=== PATIENT | female | born 2000 | race Caucasian/White ===

== ENCOUNTER 2025-04-27 21:46 | Emergency (ER) | payer OTHER, SELFPAY ==
[2025-04-27 21:53] VITALS: PULSE 112; RESP 18; TEMP 36.7; O2SAT 99; BMI 24.8
[2025-04-27 22:22] LABS: Hematocrit 47.8 % (37.0-47.0); Hemoglobin 16.8 g/dl (12.0-16.0); Imm Gran Abs Auto 0.05 X10*3/uL (0.00-0.03); Imm Gran Pct Auto 0.4 % (0.0-0.4); Lymphocytes Absolute Auto 0.6 X10*3/uL (1.2-4.9); MANUAL DIFF FLAG NO; Mean Corpuscular HGB Conc 35.1 g/dl (31.0-35.0); Mean Corpuscular Hemoglobin 29.0 pg (27.0-33.0); Mean Corpuscular Volume 82.6 fL (80.0-98.0); NRBC Abs Auto 0.000 X10*3/uL (0.0-0.012); NRBC Pct Auto 0.0 /100WBC (0.0-0.2); Platelet Count 317 X10*3/uL (160-400); Red Blood Count 5.79 X10*6/uL (4.20-5.50); White Blood Count 11.9 X10*3/uL (4.8-10.8)
[2025-04-27 22:37] LABS: Alanine Aminotransferase 22 U/L (0-31); Albumin Level 5.4 g/dL (3.5-5.0); Alkaline Phosphatase 65 U/L (39-117); Anion Gap 19 (12-20); Aspartate Amino Transferase 27 U/L (5-31); Blood Urea Nitrogen 14 mg/dL (9-16); Calcium 10.9 mg/dL (8.4-10.2); Carbon Dioxide 20 mmol/L (22-29); Chloride 105 mmol/L (96-108); Creatinine Clr Calc Pharmacy 66.8; Estimated Glomerular Filt Rate 60; Lipase 16 U/L (8-78); Potassium 3.7 mmol/L (3.3-5.1); Sodium 140 mmol/L (135-145); Total Protein 8.3 g/dL (6.5-8.0)
[2025-04-27 22:43] LABS: Magnesium 1.8 mg/dL (1.6-2.6)
[2025-04-28 00:04] VITALS: BP 103/61; PULSE 94; RESP 15; TEMP 36.4; O2SAT 100
--- NOTE | 2025-04-28 00:14 | PC.NURSE ---
pt a&ox4, respirations even and unlabored. pt reports sudden onset of n/v/d and bilateral leg cramping and numbness. pt denies any sick contacts. pt reports she has had poor po intake and is throwing up bile. pt mother reports pt is vit b12 deficit and believes this might be causing the sx. pt reports sx started after majijuana use. vss.
[2025-04-28 00:45] LABS: Resp Syncy Virus RNA Qual PCR NEGATIVE (Negative); SARS COV2 PCR INHOUSE NEGATIVE (Negative)
[2025-04-28 00:55] LABS: Appearance Urine Cloudy; Glucose Urine UA Negative (Negative); PH 5.0 (5.0-9.0); Specific Gravity - Urine >= 1.030 (1.005-1.025); UMIC TRIGGER UACC YES
--- OUTSIDE RECORDS SUMMARY | 2025-04-28 01:00 | XMS_ITS | Clinical Summary ---
Author Organization [facility] [address] [place] [address] [place] [phone] Phone Care Team Providers Care Automotive Project Engineer Name Role Phone William Zuñiga MD Primary Care Provider [phone] Allergies No known active allergies Medications albuterol 2.5 mg /3 mL (0.083 %) nebulizer solution Take 1 Vial by nebulization 3 times daily as needed. Active albuterol HFA (PROAIR HFA ; PROVENTIL HFA ; VENTOLIN HFA) 90 mcg/actuation inhaler Inhale 2 Puffs into the lungs every 4 hours as needed for Cough or Wheezing. 6 Active albuterol HFA (PROAIR HFA ; PROVENTIL HFA ; VENTOLIN HFA) 90 mcg/actuation inhaler Inhale 2 Puffs into the lungs every 4 hours as needed for Cough or Wheezing. One for home, one for school 6 Active diphenhydrAMINE (BENADRYL) 25 mg tablet Take 1 Tab by mouth every 8 hours as needed for Itching or Allergies. 6 Active cyanocobalamin (VITAMIN B-12) 1,000 mcg tablet Take 1 tablet (1,000 mcg total) by mouth 1 (one) time each day. 30 each 5 10/21/19 26 Active cholecalciferol (VITAMIN D-3) 50 mcg (2,000 unit) tablet Take 1 tablet (2,000 Units total) by mouth 1 (one) time each day. 30 tablet 11 5 10/21/19 26 Active fluticasone propionate (FLONASE) 50 mcg/actuation nasal spray Administer 2 sprays into each nostril 1 (one) time each day. Shake gently. Before first use, prime pump. After use, clean tip and replace cap. 16 g 5 5 10/21/19 26 Active Hospital, Clinic, or Other Facility Administered Medication Ordered Dose Route Frequency Start Date End Date Status cyanocobalamin (VITAMIN B-12) injection 1,000 mcgIndications:B12 deficiency 1000 mcg IM Every 30 days 09/22/2024 Active Active Problems Problem Noted Date Diagnosed Date B12 deficiency 07/24/2024 Trichomonas infection 08/19/2023 Overview (02/14/2024): 08/2023- treated 11/23- retesting- positive, treated Vitamin D deficiency 06/14/2020 Overview (02/14/2024): 06/21 level 20 stated on Vitamin D IVON (acute kidney injury) 06/02/2018 Mood changes 01/27/2017 PTSD (post-traumatic stress disorder) 01/27/2016 Dysmenorrhea 01/25/2015 Allergic rhinitis 01/04/2015 Overview (02/14/2024): 01/25/15 denies problem at this time Asthma 07/08/2011 Overview (02/14/2024): Mild obstructive airway disease per PFT on 07/14/11 [facility] 01/25/15 Doing well. Not using inhaler with sports Immunizations Immunization Administration Dates Next Due DTaP (Infanrix) 6wks to less than 7yo ,11/13/2000,04/14/2000,02/12,1999 [id number]-QWK-IYR (Pentacel) 2mo to less than 5yo 01/12/2001,04/14/2000,02/13/2000,12/09 HPV 9-valent (Gardisil) 9yo to less than 46yo 01/25/2015 HPV, Quadrivalent 12/16/2012,04/15/2012 Hepatitis A Pediatric (Havri x; Vaqta) 12mo to less than 19yo 07/08/2011,12/04/2010 Hepatitis B Pediatric (Enger ix B; Recombivax HB) to less than 20 yo 07/28/2000,1999,1999 IPV Inactivated polio (Ipol) 6wks and older 10/24/2003,07/28/2000,02/13/2000,12/09 MMR, measles mumps and rubel la Live (Priorix; M-M-R II) 12mo and older 10/24/2003,11/13/2000 Meningococcal MCV4P 01/27/2016,11/17/2010 Pneumococcal Conjugate Vacci ne, 7 Valent 04/15/2001,11/13/2000 Pneumococcal polysaccharide 23 valent (Pneumovax 23) 2yo and older 04/03/2020 Tdap Tetanus diptheria acell ular pertussis (Boostrix; Adacel) 7yo and older 04/15/2023,11/17/2010 Varicella live (Varivax) 12m o and older 07/08/2011,11/13/2000 Surgical History Surgery Date Site/Laterality Comments HERNIA REPAIR age 2 PROCEDURE: HISTORICAL HERNIA REPAIR/UMB SHOULDER SURGERY 07/16/2022 Left PROCEDURE: HISTORICAL SHOULDER SURGERY Medical History Medical History Date Comments Asthma 2003 DX:Asthma; COMME NT: PFT on 07/14/[address] [facility] Contact dermatitis and other eczema, due to unspecified cause 06/30/12 DX:Contact dermatitis and ot her eczema, due to unspecified cause Allergic rhinitis 01/04/2015 DX:Allergic rh initis Family History Medical History Relation Name Comments Asthma Father Diabetes Father Other: TB Father took INH in pas t Other: hyperlipidemia Father Hyperlipidemia Maternal Grandfather Other: epilepsy Maternal Grandfather Thyroid disease Maternal Grandfather Depression Maternal Grandmother Glaucoma Maternal Grandmother Hyperlipidemia Maternal Grandmother Thyroid disease Maternal Grandmother Diabetes Paternal Grandmother Glaucoma Paternal Grandmother Asthma Sister 1 Blindness Neg Hx Breast cancer Neg Hx Cataracts Neg Hx Colon cancer Neg Hx Macular degeneration Neg Hx Ovarian cancer Neg Hx Pancreatic cancer Neg Hx Strabismus Neg Hx Uterine cancer Neg Hx Relation Name Status Comments Father Alive Maternal Grandfather Alive Maternal Grandmother Alive Mother Alive Paternal Grandfather Alive Paternal Grandmother Alive Sister 1 Sister 2 Alive older, name, ag e unknown at this time Social History Tobacco Use Types Packs/Day Years Used Date Smoking Tobacco: Never Smokeless Tobacco: Never Tobacco Cessation:Counseling Given: No Alcohol Use Standard Drinks/Week Comments Yes 0 (1 standard drink = 0.6 oz pur e alcohol) Housing Instability Answer Date Recorde d Are you worried that in the next 2 months you may not have stable housing? No 07/19/2024 Food Access & Nutrition Answer Date Rec orded Do you have access to a vari ety of food including fruits and vegetables? Yes 07/19/2024 Access to Healthcare Answer Date Record ed Within the last 3 months, ho w many times did you visit the emergency department for your medical care? 1 07/19/2024 Health Literacy Answer Date Recorded How often do you need to hav e someone help you when you read instructions, pamphlets, or other written material from your doctor or pharmacy? Never 07/19/2024 Caregiver: How often do you need to have someone help you when you read instructions, pamphlets, or other written material from your doctor or pharmacy? Not on file 07/19/2024 Financial Risk Answer Date Recorded How hard is it for you to pa y for the very basics like food, housing, medical care, and air conditioning / heating? Not very hard 07/19/2024 Transportation Answer Date Recorded Has the lack of transportati on kept you from meetings, work, or from getting things needed for daily living? No Has the lack of transportati on kept you from medical appointments or from getting medications? No 07/19/2024 Social Isolation Answer Date Recorded How often do you feel lonely or isolated from th ose around you? Never 07/19/2024 Food Risk Answer Date Recorded Within the past 12 months we worried whether our food would run out before we got money to buy more. Never true 07/19/2024 Within the past 12 months th e food we bought just didn't last and we didn't have money to get more. Never true 07/19/2024 Dependent Care Answer Date Recorded Do you need help finding or paying for care for your loved ones. For example, child care cook or elderly care for an older adult? No 07/19/2024 Education Answer Date Recorded Do you think completing more education or training, like finishing a GED, going to college, or learning a trade, would be helpful for you? No 07/19/2024 Employment and Income Answer Date Recor ded During the last four weeks, have you been actively looking for work? No 07/19/2024 Living Situation Answer Date Recorded What is your living situation? Unrecognized valu e 07/19/2024 Comments No Sex and Gender Information Value Date Recorded Sex Assigned at Not on file Legal Sex Female 2:22 PM EST Gender Identity Not on file Sexual Orientation Not on file Obstetrics History Para Term AB IAB SAB Ectopic Multiple Livin g Live Births 0 0 0 0 0 0 0 0 Last Filed Vital Signs Vital Sign Reading Time Taken Comments Blood Pressure 100/60 10/20/2024 8:19 AM EDT Pulse 56 10/20/2024 8:19 AM EDT Temperature 36.6 C (97.8 F) 10/20/2024 8:19 AM EDT Respiratory Rate 16 04/18/2024 1:53 PM EST Oxygen Saturation 96% 10/20/2024 8:19 AM EDT Inhaled Oxygen Concentration - - Weight 59.1 kg (130 lb 3.2 oz) 10/20/2024 8:19 A M EDT Height 157.5 cm (5' 2 ) 10/20/2024 8:19 AM EDT Body Mass Index 23.81 10/20/2024 8:19 AM EDT Plan of Treatment Health Maintenance Due Date Last Done Comments Depression Screening 05/10/2024 04/15/2023 COVID-19 Vaccine ( season) 2025 Influenza Vaccine (#1) 2025 Social Influencers of Health Screening 07/19/2025 07/19/2024 Cervical Cancer Screening: Pap Smear 03/24/2027 03/24/2024 Cholesterol Screening (Lipid Panel) 07/20/2029 07/20/2024, 04/15/2023 DTaP,Tdap,and Td Vaccines (8 - Td or Tdap) 04/15/2033 04/15/2023, 11/17/2010, 10/24/2003, Additional history exists Pneumococcal Vaccine: Pediatrics (0 to 5 Years) and At-Risk Patients (6 to 49 Years) (2 of 2 - PCV20 or PCV21) 10/08/2049 04/03/2020, 04/15/2001, 11/13/2000 RSV Immunization Adult Patients (1 - 1-dose 75+ series) 10/08/2074 Hepatitis B Vaccines Completed 07/28/2000, 1999, 1999 HIB Vaccines Completed 01/12/2001, 10/1999, 02/13/2000, Additional history exists IPV Vaccines Completed 10/24/2003, 09/2000, 07/28/2000, Additional history exists MMR Vaccines Completed 10/24/2003, 11/13/2000 Hepatitis A Vaccines Completed 07/08/2011, 12/05/19 11 Varicella Vaccines Completed 07/08/2011, 11/13/2000 HPV Vaccines Completed 01/25/2015, 01/2013, 04/15/2012 Meningococcal ACWY Vaccine Completed 01/27/2016, HIV Screening Completed 05/23/2020 Hepatitis C Screening Completed 05/23/2020 Gonorrhea/Chlamydia Screening Discontinued 03/24/2024, 08/18/2023 Meningococcal B Vaccine Aged Out No l onger eligible based on patient's age to complete this topic RSV Immunization Patients Under 20 months Aged Out No longer eligible based on patient's age to complete this topic Procedures Procedure Name Priority Date/Time Associated Diagnosis Comments LIPID PANEL WITH REFLEX TO DIRECT LDL Routine 07/20/2024 1:52 PM EDT Routine general medical examination at a health care facility CHLAMYDIA TRACHOMATIS AND NEISSERIA GONORRHOEAE PCR Routine 03/24/2024 12:48 PM EST Screen for STD (sexually transmitted disease) PAP SMEAR Routine 03/24/2024 12:44 PM EST Screening for cervical cancer DEPRESSION SCREENING Routine 04/15/2023 HEPATITIS C SCREENING Routine 05/23/2020 HIV SCREENING Routine 05/23/2020 from Last 3 Months or Most Recently Relevant to Health Maintenance Results * Lipid panel with reflex to direct LDL (07/20/2024 1:52 PM EDT) Cholesterol 129 0 - 200 mg/dL LAB CHEMISTRY METHOD 07/20/2024 6:34 PM EDT [facility] Triglycerides 56 0 - 150 mg/dL LAB CHEMISTRY METHOD 07/20/2024 6:34 PM EDT [facility] HDL 54 >=40 mg/dL LAB CHEMISTRY METHOD 07/20/2024 6:34 PM EDT [facility] LDL Calculated 64 0 - 100 mg/dL LAB CHEMISTRY METHOD 07/20/2024 6:34 PM EDT [facility] VLDL Cholesterol Jair 11.2 mg/dL LAB CHEMISTRY METHOD 07/20/2024 6:34 PM EDT [facility] Non HDL Chol. (LDL+VLDL) 75 <145 mg/dL LAB CHEMISTRY METHOD 07/20/2024 6:34 PM EDT [facility] Chol/HDL Ratio 2.4 0.0 - 4.4 LAB CHEMISTRY METHOD 07/20/2024 6:34 PM EDT [facility] Blood Venous blood specimen / Unknown Venipuncture / Unknown 07/20/2024 1:52 PM EDT 07/20/2024 1:52 PM EDT us Galilea BROUSSARD LAB BLOOD ORDERABLES Final Result [facility] [address] [place] [address], * Chlamydia trachomatis and Neisseria gonorrhoeae molecular study (03/24/2024 12:48 PM EST) Neisseria gonorrhoeae PCR Negative Negative LAB MOLECULAR DIAGNOSTICS METHOD 03/25/2024 1:51 PM EST [facility] Chlamydia trachomatis PCR Negative Negative LAB MOLECULAR DIAGNOSTICS METHOD 03/25/2024 1:51 PM EST [facility] Swab Cervix uteri structure / Unknown Non-blood Collection / Unknown 03/24/2024 12:48 PM EST 03/24/2024 12:48 PM EST Sagrario Wei MD LAB MICROBIOLOGY - GENERAL ORDERABLES Final Result [facility] [address] [place] [address], * Pap Smear (03/24/2024 12:44 PM EST) Interpretation Negative for intraepithelial lesion or malignancy 03/29/2024 9:26 AM [facility] at 0926 EST General Categorization Negative 03/29/2024 9:26 AM [facility] Other Findings Shift in gustavo suggestive of bacterial vaginosis 03/29/2024 9:26 AM [facility] LMP 02/21/2024 03/29/2024 9:26 AM [facility] Specimen Adequacy Satisfactory for evaluation, endocervical/patton sformation zone component present 03/29/2024 9:26 AM [facility] Pap Methodology Liquid Based Pap Test 03/29/2024 9:26 AM [facility] Disclaimer The Pap test is a screening test which carries an inherent false negative rate. These test results should be correlated with the patient's clinical findings and history. This Pap test was processed using an automated screening system. Technical cytopathology services provided by [facility], at [address] [place] [id number] (CLIA # [id number]/Ruby Gonzalez MD, Associate Consulting Engineer.) 03/29/2024 9:26 AM [facility] Console Pap Interpretation Reported 03/29/2024 9:26 AM [facility] Broom Cervix uteri structure / Unknown 03/24/2024 12:44 PM EST 03/24/2024 12:44 PM EST Sagrario Wei MD LAB CYTOLOGY ORDERABLES Fin al Result [facility] [address] [place] [address], [place] [phone] * Depression Screening (04/15/2023) Depression Screening abstracted Historical Provider HEALTH MAINTENANCE Final Result * HIV Screening (05/23/2020) HIV Screening abstracted Historical Provider HEALTH MAINTENANCE Final Result * Hepatitis C Screening (05/23/2020) Hepatitis C Screening abstracted Historical Provider HEALTH MAINTENANCE Final Result from Last 3 Months or Most Recently Relevant to Health Maintenance Insurance [facility] [employer] Care Teams Automotive Project Engineer Relationship Specialty Start Date End Date William Zuñiga MD [address] [facility] [address] [place] [address] PCP - General Internal Medicine 05/30/24
--- OUTSIDE RECORDS SUMMARY | 2025-04-28 01:00 | XMS_ITS ---
Author Name [facility] Organization Unknown Care Team Organization Name Specialty Phone Email Start Date End Da te [facility] Termed, PROVIDER Primary Care 01/14/202312/08 [facility] DEBO VARELA Primary Care 03/17/2022 12/27/2023
--- NOTE | 2025-04-28 03:07 | ED.GENADULT ---
HPI - General Adult General Chief complaint: Nausea/Vomiting/Diarrhea Stated complaint: vomiting, diarrhea, legs numb,tingly Time Seen by Provider: 04/28/25 03:03 Source: patient Mode of arrival: ambulatory Limitations: no limitations History of Present Illness ED Provider: Mika BROUSSARD HPI narrative: The patient is a 24-year-old female who presents to the ED for acute onset nausea, vomiting, and diarrhea. She began having symptoms around 1700 today with 10-15 episodes each of non-bloody, non-bilious emesis and watery diarrhea. She endorses cramping/?locking? of her hands, wrists, fingers, feet, and calves that often occurs during or immediately after vomiting. Patient admits she breathes rapidly and heavily between episodes of vomiting. She denies abdominal pain at rest. The patient denies associated fevers or chills, she has voided today without hematuria or dysuria. Patient denies irregular vaginal bleeding, or vaginal discharge. The patient's last menstrual period ended 2 days ago, with normal flow and duration. Denies any recent sick contacts or trauma. The patient denies surgical abdominal history, reports remote history of ruptured ovarian cyst. Patient denies alcohol use but does report regular marijuana use, reports she obtains marijuana products from a certified dispensary. The patient reports she follows a vegetarian diet, as a result was previously diagnosed with vitamin B12 and vitamin-D deficiency, for which she was initially placed on vitamin B12 injections, then switch to oral vitamin-B12 supplementation. Patient reports she briefly stopped the vitamin-B12 supplementation, but restarted oral B12 approximately 1 week ago. Related Data Previous Rx's ?Medication ?Instructions ?Recorded ondansetron 4 mg disintegrating 4 mg PO Q8H PRN nausea and 04/28/25 tablet vomiting #14 tabs Allergies Allergy/AdvReac Type Severity Reaction Status Date / Time apple (APPLES) Allergy Unknown MOUTH Verified 04/27/25 21:57 ITCHES peach (PEACHES) Allergy Unknown MOUTH Verified 04/27/25 21:57 ITCHES Review of Systems Review of Systems: Yes all other systems are reviewed and are negative PMFSH Social History Social History Smoked in Last 30 Days: No Use of substances other than those prescribed or required for medical reasons: Yes Substance Use Type: Marijuana Substance Use Frequency: Occasionally Last Used Substance: Hours (ago) Advance Directives: No Advance Directives Information Provided: No Do you have a plan to hurt others: No Plan Patient : No Physical Exam ED Vital Signs: Vital Signs - 24 hr 04/27/25 21:53 04/28/25 00:04 04/28/25 04:46 Temperature 98.1 F 97.6 F 98.6 F Pulse Rate 112 H 94 74 Respiratory Rate 18 15 18 Blood Pressure 103/61 119/62 Pulse Oximetry 99 100 98 Oxygen Delivery Method Room Air Room Air Room Air BMI result Body Mass Index 24.8 CONSTITUTIONAL: The patient appears non-toxic, well nourished and in no acute distress. Vital signs as documented. HEAD: Atraumatic, normocephalic. EYES: EOMs grossly intact, pupils equal, conjunctiva clear, no exudate. ENT: Nares patent, no discharge. Airway patent, no audible stridor, visible mucosa is pink and moist without noted lesions. NECK: Trachea is midline, no obvious masses or gross abnormalities. CHEST: Symmetric movement, normal appearance. LUNGS: LS present and CTAB, no w/r/r. Non-labored work of breathing. CARDIAC: Regular Rhythm, S1/S2 appreciated, no murmurs, rubs or gallops. ABDOMEN: Abdomen soft and non-tender x4 quadrants, no palpable masses or organomegaly. : Deferred. EXTREMITIES: Normal tone, moves all extremities spontaneously without reported pain. No obvious acute injury or deformity noted. No spasm during exam, no calf tenderness. NEURO: Alert and oriented x3, CN II-XII appear grossly intact. Cerebellar Functioning grossly intact. No obvious sensory or motor deficits. Speech clear and appropriate. PSYCH: normal affect, appropriate eye contact, fluid speech, with appropriate response to questioning. No reported suicidality or homicidality. SKIN: Warm, dry, color appropriate, normal turgor. No rashes noted. Medications Administered Discontinued Medications Generic Name Dose Route Start Last Admin Trade Name Freq PRN Reason Stop Dose Admin Diazepam 5 mg 04/28/25 03:21 04/28/25 03:33 Diazepam 10 Mg/2 Ml Cartridge IVPUSH 04/28/25 03:22 5 mg STAT STA Administration Sodium Chloride 1,000 mls @ 999 mls/hr 04/28/25 03:30 04/28/25 04:45 Ns IV 04/28/25 04:30 Infused .Q1H1M MESFIN Infusion Lactated Ringer's 1,000 mls @ 999 mls/hr 04/28/25 03:30 04/28/25 04:45 Lr IV 04/28/25 04:30 Infused .Q1H1M MESFIN Infusion Ketorolac Tromethamine 15 mg 04/28/25 03:21 04/28/25 03:33 Ketorolac Tromethamine 15 Mg/Ml Vial IVPUSH 04/28/25 03:22 15 mg ONCE ONE Administration Ondansetron HCl 4 mg 04/28/25 03:21 04/28/25 03:33 Ondansetron Hcl 4 Mg/2 Ml Vial IVPUSH 04/28/25 03:22 4 mg ONCE ONE Administration Medical Decision Making Medical Decision Making MDM Narrative: 3:29 AM 04/28/2025 (Radames BROUSSARD): The patient is a 24-year-old female who presents to the ED for acute onset nausea, vomiting, and diarrhea. She began having symptoms around 1700 today with 10-15 episodes each of non-bloody, non-bilious emesis and watery diarrhea. She endorses cramping/?locking? of her hands, wrists, fingers, feet, and calves that often occurs during or immediately after vomiting. Patient admits she breathes rapidly and heavily between episodes of vomiting. She denies abdominal pain at rest. The patient denies associated fevers or chills, she has voided today without hematuria or dysuria. Patient denies irregular vaginal bleeding, or vaginal discharge. The patient's last menstrual period ended 2 days ago, with normal flow and duration. Denies any recent sick contacts or trauma. The patient denies surgical abdominal history, reports remote history of ruptured ovarian cyst. Patient denies alcohol use but does report regular marijuana use, reports she obtains marijuana products from a certified dispensary. The patient reports she follows a vegetarian diet, as a result was previously diagnosed with vitamin B12 and vitamin-D deficiency, for which she was initially placed on vitamin B12 injections, then switch to oral vitamin-B12 supplementation. Patient reports she briefly stopped the vitamin-B12 supplementation, but restarted oral B12 approximately 1 week ago. On exam patient is nontoxic appearing, vital signs stable, no tachycardia, tachypnea, hypotension, or fever. The patient's abdominal exam is benign, nontender. No CVAT. No adventitious lung sounds. The patient's laboratory evaluation shows mild leukocytosis of 11.9, no anemia, electrolyte abnormality, or IVON. The patient's LFTs are unremarkable, lipase is normal, urinalysis shows contamination with greater than 20 squamous epithelial cells without WBCs or nitrites. Urine is negative. Viral swabs are negative for influenza, COVID, and RSV. The patient's labs do show elevated H&H, possibly demonstrating heme concentration from dehydration. The patient may be suffering from viral gastroenteritis versus cannabinoid hyperemesis. Cramping is likely secondary to hyperventilation between vomiting. The patient will be treated with anti-inflammatories, IV fluid hydration, and antispasmodics for the intermittent cramping. The patient's family is requesting add on a vitamin B12 and vitamin-D levels. At this time there is no indication for CT imaging. 4:50 AM 04/28/2025 (Radames BROUSSARD): The patient is reporting significant improvement in symptoms following interventions in the ED. At this time the patient is hemodynamically stable, normal vital signs. The patient's vitamin-D level is normal, vitamin B12 we will not result today. The patient will be discharged with supportive care. Admission/Observation Consideration of admission/observation: Escalation of care including admission/observation considered Lab Data MDM Lab Attestation statement: I reviewed the patient's lab results. 04/27/25 22:18 04/27/25 22:18 Labs: Lab Results 04/27/25 04/28/25 04/28/25 Range/Units 22:18 00:04 00:47 WBC 11.9 H (4.8-10.8) X10*3/uL RBC 5.79 H (4.20-5.50) X10*6/uL Hgb 16.8 H (12.0-16.0) g/dl Hct 47.8 H (37.0-47.0) % MCV 82.6 (80.0-98.0) fL MCH 29.0 (27.0-33.0) pg MCHC 35.1 H (31.0-35.0) g/dl RDW 12.3 (11.0-16.0) % Plt Count 317 (160-400) X10*3/uL MPV 9.4 (9.4-12.3) fL Immature Gran % (Auto) 0.4 (0.0-0.4) % Neut % (Auto) 89.3 H (45-73) % Lymph % (Auto) 4.8 L (20-40) % [place] % (Auto) 4.3 (2-11) % Eos % (Auto) 0.9 (0-4) % Baso % (Auto) 0.3 (0-2) % Lymph # (Auto) 0.6 L (1.2-4.9) X10*3/uL [place] # (Auto) 0.5 (0.1-1.2) X10*3/uL Eos # (Auto) 0.1 (0.0-0.4) X10*3/uL Baso # (Auto) 0.0 (0.0-0.2) X10*3/uL Abs Immat Gran (auto) 0.05 H (0.00-0.03) X10*3/uL Absolute Neuts (auto) 10.7 H (2.0-8.3) x10*3/uL Absolute Nucleated RBC 0.000 (0.0-0.012) X10*3/uL Nucleated RBC % (auto) 0.0 (0.0-0.2) /100WBC Sodium 140 (135-145) mmol/L Potassium 3.7 (3.3-5.1) mmol/L Chloride 105 (96-108) mmol/L Carbon Dioxide 20 L (22-29) mmol/L Anion Gap 19 (12-20) BUN 14 (9-16) mg/dL Creatinine 1.11 (0.5-1.4) mg/dL Estim Creat Clear Calc 66.8 Estimated GFR 60 Random Glucose 132 H (60-115) mg/dL Calcium 10.9 H (8.4-10.2) mg/dL Magnesium 1.8 (1.6-2.6) mg/dL Total Bilirubin 1.0 (0.0-1.0) mg/dL Direct Bilirubin 0.3 (0.0-0.5) mg/dL AST 27 (5-31) U/L ALT 22 (0-31) U/L Alkaline Phosphatase 65 (39-117) U/L Total Protein 8.3 H (6.5-8.0) g/dL Albumin 5.4 H (3.5-5.0) g/dL Lipase 16 (8-78) U/L 25-OH Vitamin D Total 32.9 (>30) ng/mL Beta HCG, Quant < 2 mIU/mL Urine Color Dark Yellow Urine Appearance Cloudy Urine pH 5.0 (5.0-9.0) Ur Specific [place] >= 1.030 H (1.005-1.025) Urine Protein 100 (2+) H (Neg-Trace) mg/dL Urine Glucose (UA) Negative (Negative) mg/dL Urine Ketones 80 (Negative) mg/dL Urine Blood Small (1+) H (Negative) Urine Nitrite Negative (Negative) Ur Leukocyte Esterase Trace H (Negative) Urine RBC 0-2 (0-2) /HPF Urine WBC 0-5 (0-5) /HPF Ur Squamous Epith Cells >20 (0-2) /HPF Urine Bacteria 4+ (None Seen) Hyaline Casts 3-5 (0-2) /LPF Urine Opiates Screen Not Detected (Not Detect) Ur Buprenorphine Scrn Not Detected (Not Detect) ng/mL Ur Oxycodone Screen Not Detected (Not Detect) ng/mL Urine Methadone Screen Not Detected (Not Detect) ng/mL Urine Fentanyl Screen Not Detected (Not Detect) Ur Barbiturates Screen Not Detected (Not Detect) Ur Phencyclidine Scrn Not Detected (Not Detect) Ur Amphetamines Screen Not Detected (Not Detect) U Benzodiazepines Scrn Not Detected (Not Detect) Urine Cocaine Screen Not Detected (Not Detect) U Marijuana (THC) Screen POSITIVE H (Not Detect) Influenza Type A (PCR) NEGATIVE (Negative) Influenza Type B (PCR) NEGATIVE (Negative) RSV RNA Qual (PCR) NEGATIVE (Negative) SARS-CoV-2 RNA (RT-PCR) NEGATIVE (Negative) Discharge Plan Discharge Clinical Impression: Gastroenteritis Patient Disposition: Home, Self-Care Instructions: Gastroenteritis (ED), Acute Nausea and Vomiting (ED) Additional Instructions: Thank you for choosing [facility]'s Emergency Department for your care today. Thankfully your laboratory evaluation, viral swabs, urinalysis, vitamin-D level, exam and vital signs today are reassuring. At this time there is no indication for emergent CT imaging, admission to the hospital or continued ED observation, and it is safe to discharge you home. Given the presence of diarrhea with the your nausea and vomiting, your symptoms are most likely being caused by a viral gastrointestinal illness. There was no indication for antibiotics. Please stay well hydrated and get plenty of rest. Please take Zofran as needed as directed for additional nausea. Please begin to 1st advanced your diet by drinking only clear liquids. When he began to feel improvement in symptoms you may begin eating bland foods such as bread, rice, applesauce, and toast. You may slowly advance your diet from there. You should take alternating (staggered) doses of ibuprofen 600mg and Tylenol 1000mg every 4 hours as needed for any additional pain. Please follow up with your primary care physician for re-evaluation, additional management of your symptoms, and continued preventative care. If you do not have a primary care physician, please call the [facility] at [phone] to establish a new primary care physician. While waiting to establish your new primary care physician, you can call our [facility] at [phone] for non-emergency needs. Please return to the emergency department if you develop a severe or sudden change in your symptoms, a fever over 100.4 that does not improve with Tylenol or Ibuprofen, recurrent vomiting, or any other new or worsening symptoms or concerns. Prescriptions: New ondansetron 4 mg tablet,disintegrating 4 mg PO Q8H PRN (Reason: nausea and vomiting) Qty: 14 0RF Referrals: Galilea Bhatia PA [Primary Care Provider, Internal Medicine] Clinical Impression: Gastroenteritis Print Language: Spanish
[2025-04-28] MEDS: diazePAM 10 MG/2 ML CARTRIDGE 5 MG IVPUSH (03:33)
[2025-04-28] MEDS: Lactated Ringers 1,000 ML 999 ML IV (03:33)
--- NOTE | 2025-04-28 03:45 | PC.NURSE ---
20g placed in left forearm, pt medicated per jul.
[2025-04-28 04:35] LABS: Cannabinoid Screen Urine POSITIVE (Not Detect)
[2025-04-28 04:46] VITALS: BP 119/62; PULSE 74; RESP 18; TEMP 37; O2SAT 98
[2025-04-28 05:11] VITALS: BP 119/62; PULSE 74; RESP 18; TEMP 37; O2SAT 98
[2025-04-28 05:51] LABS: Vitamin B12 551 pg/mL (200-900)
== END 2025-04-28 05:15 | disposition home or self-care (01) ==
PROVIDERS: Physician Assistant; Emergency Provider Emergency Medicine; PCP Physician Assistant Medical
DX: K52.9 Noninfective gastroenteritis and colitis, unspecified (principal); R11.2 Nausea with vomiting, unspecified; R20.0 Anesthesia of skin; R20.2 Paresthesia of skin; Z03.818 Encounter for observation for suspected exposure to other biological agents ruled out; F12.90 Cannabis use, unspecified, uncomplicated
CPT/HCPCS: 36415; 80048; 80076; 80307; 81001; 82306; 82607; 83690; 83735; 84702; 85025; 87637; 96361; 96374; 96375; 99284; 99285; J1885; J2405; J3360; J7120